=== PATIENT | male | born 1995 | race African-American/Black ===

== ENCOUNTER 2019-09-16 18:46 | Emergency (ER) | payer SELFPAY ==
[~2019-09-16] VITALS: Ht 172.7 cm; Wt 77.1 kg
[2019-09-16 19:02] VITALS: BP 123/66
[2019-09-16] MEDS ORDERED: ACYCLOVIR 200 MG CAPSULE ONE (20:53)
[2019-09-16] MEDS ORDERED: ACYCLOVIR 200 MG CAPSULE PO ONE (21:00)
== END 2019-09-16 20:56 | disposition home or self-care (01) ==
LOC: ER 18:48
DX: B00.9 Herpesviral infection, unspecified (principal); Z72.89 Other problems related to lifestyle; Z60.2 Problems related to living alone